=== PATIENT | female | born 1965 | race Caucasian/White ===

== ENCOUNTER → 2017-02-24 | Outpatient (CLI) | payer MEDICARE, BC ==
[~2017-02-24] MED LIST: BACTROBAN22 GM TOP; ECOTRIN325 MG PO; EFFEXOR XR75 MG PO; MYFORTIC360 MG PO; NEPHROCAPS SOFTG1 MG PO; NEURONTIN100 MG PO; NEXIUM40 MG PO; PREDNISONE5 MG PO; PRENATAL PLUS I1 TAB PO; PRINIVIL5 MG PO; PROGRAF0.5 MG PO; REGLAN10 MG PO; ULTRAM50 MG PO; VITAMIN D31000 UNI1 PO
== END | disposition short-term general hospital (02) ==
LOC: CLPHYS 08:48
DX: G56.13 Other lesions of median nerve, bilateral upper limbs (principal); G56.22 Lesion of ulnar nerve, left upper limb

== ENCOUNTER → 2017-02-26 | Outpatient (CLI) | payer MEDICARE, BC | END | disposition short-term general hospital (02) | LOC: CLCARD 07:11 | DX: I35.0 Nonrheumatic aortic (valve) stenosis (principal); R55 Syncope and collapse; I12.9 Hypertensive chronic kidney disease with stage 1 through stage 4 chronic kidney disease, or unspecified chronic kidney disease; E10.22 Type 1 diabetes mellitus with diabetic chronic kidney disease; N18.9 Chronic kidney disease, unspecified; Z94.0 Kidney transplant status; Z94.83 Pancreas transplant status; Z87.19 Personal history of other diseases of the digestive system ==

== ENCOUNTER → 2017-03-19 | Outpatient (CLI) | payer MEDICARE, BC | END | disposition short-term general hospital (02) | LOC: CLCARD 08:44 | DX: I35.0 Nonrheumatic aortic (valve) stenosis (principal); R55 Syncope and collapse; I12.9 Hypertensive chronic kidney disease with stage 1 through stage 4 chronic kidney disease, or unspecified chronic kidney disease; E10.22 Type 1 diabetes mellitus with diabetic chronic kidney disease; N18.9 Chronic kidney disease, unspecified; Z87.19 Personal history of other diseases of the digestive system; Z94.0 Kidney transplant status; Z94.83 Pancreas transplant status ==

== ENCOUNTER → 2017-04-09 | Outpatient (CLI) | payer MEDICARE, BC | END | disposition short-term general hospital (02) | LOC: CLNEPH 13:03 | DX: Z48.22 Encounter for aftercare following kidney transplant (principal); I12.9 Hypertensive chronic kidney disease with stage 1 through stage 4 chronic kidney disease, or unspecified chronic kidney disease; E10.22 Type 1 diabetes mellitus with diabetic chronic kidney disease; N18.2 Chronic kidney disease, stage 2 (mild); E10.21 Type 1 diabetes mellitus with diabetic nephropathy; Z94.0 Kidney transplant status; Z94.83 Pancreas transplant status ==

== ENCOUNTER 2017-07-05 18:50 | Emergency (ER) | payer MEDICARE, BC ==
[~2017-07-05] VITALS: Ht 160 cm; Wt 49.4 kg
[2017-07-05] MEDS ORDERED: NEURONTIN100 MG PO (19:30)
[2017-07-05] MEDS ORDERED: ULTRAM50 MG PO (19:30)
[2017-07-05] MEDS ORDERED: EFFEXOR XR75 MG PO (19:31)
[2017-07-05] MEDS ORDERED: PRINIVIL5 MG PO (19:32)
[2017-07-05] MEDS ORDERED: REGLAN10 MG PO (19:33)
[2017-07-05] MEDS ORDERED: NEXIUM40 MG PO (19:33)
[2017-07-05] MEDS ORDERED: PRENATAL PLUS I1 TAB PO (19:34)
[2017-07-05] MEDS ORDERED: NEPHROCAPS SOFTG1 MG PO (19:34)
[2017-07-05] MEDS ORDERED: ECOTRIN325 MG PO (19:34)
[2017-07-05] MEDS ORDERED: MYFORTIC360 MG PO (19:35)
[2017-07-05] MEDS ORDERED: VITAMIN D31000 UNI1 PO (19:35)
[2017-07-05] MEDS ORDERED: PREDNISONE5 MG PO (19:36)
[2017-07-05] MEDS ORDERED: PROGRAF0.5 MG PO (19:37)
[2017-07-05] MEDS ORDERED: BACTROBAN22 GM TOP (19:39)
== END 2017-07-05 19:27 | disposition short-term general hospital (02) ==
LOC: ER 18:50
DX: S91.205A Unspecified open wound of left lesser toe(s) with damage to nail, initial encounter (principal); Z79.82 Long term (current) use of aspirin; Z79.899 Other long term (current) drug therapy; Z79.891 Long term (current) use of opiate analgesic; Z88.5 Allergy status to narcotic agent; Z88.8 Allergy status to other drugs, medicaments and biological substances; Z91.040 Latex allergy status; X58.XXXA Exposure to other specified factors, initial encounter